=== PATIENT | female | born 1985 ===

== ENCOUNTER 2023-04-08 22:25 | Emergency (ER) | payer OTHER, MEDICAID, SELFPAY ==
[2023-04-08 22:31] VITALS: BP 112/62; PULSE 79; RESP 16; TEMP 36.3; O2SAT 95; BMI 31.9
--- NOTE | 2023-04-08 22:40 | DI.RAD.S_ITS ---
PROCEDURE: XR ANKLE LT MIN 3V INDICATIONS: Fall TECHNIQUE: 3 views of the ankle were acquired. COMPARISON: None. FINDINGS: Bones: No fractures or dislocations. Ankle mortise is normally aligned. No suspicious bony lesions. Soft tissues: No tibiotalar joint effusion. Achilles tendon appears normal. IMPRESSION: No trauma found. Dictated by: Nigel Muller M.D. on 04/08/2023 at 23:13 Approved by: Nigel Muller M.D. on 04/08/2023 at 23:14
--- NOTE | 2023-04-09 01:43 | ED_ITS ---
HPI - Extremity Injury (Lower) General Chief Complaint: Extremity Injury, Lower Stated Complaint: L ankle fx Time Seen by Provider: 04/08/23 22:43 Source: EMS Mode of arrival: EMS History of Present Illness HPI Narrative: Left inversion ankle injury. Mechanical fall. No other acute abnormalities. Brought over by air ambulance from [facility]. He had been given IM Toradol and oral Tylenol prior to arrival moderate control of pain. Review of Systems Review of Systems Narrative: Remainder of complete review of systems is otherwise unremarkable except for that included in the HPI. Patient History Medical History (Updated 04/09/23 @ 01:54 by Khushi Francisco MD) Opioid use disorder, severe, in sustained remission Exam Initial Vital Signs Initial Vital Signs: Vital Signs Temperature 97.4 F L 04/08/23 22:31 Pulse Rate 79 04/08/23 22:31 Respiratory Rate 16 04/08/23 22:31 Blood Pressure 112/62 04/08/23 22:31 Pulse Oximetry 95 04/08/23 22:31 Oxygen Delivery Method Room Air 04/08/23 22:31 General: Alert appropriate in no acute distress Respiratory: Able to speak in full sentences, no obvious respiratory distress Skin: No obvious rashes, warm and dry Neurologic: Grossly intact no obvious asymmetries or abnormalities Psych: appropriate insight and affect, cooperative Extremity: Left ankle with significant edema without ecchymosis but moderate tenderness on the lateral aspect. Painful range of motion but nerve vascularly intact. No knee or hip involvement. Course Orders Ordered: ED Orders 04/08/23 22:40 XR ankle LT min 3V Stat Vital Signs Vital signs: Vital Signs - 8 hr 04/08/23 22:31 Temperature 97.4 F L Pulse Rate 79 Respiratory Rate 16 Blood Pressure 112/62 Pulse Oximetry 95 Oxygen Delivery Method Room Air MDM - Extremity Injury (Lower) MDM Narrative Medical decision making narrative: CC: Mechanical fall twisting her left ankle with a loud pop and immediate swelling to the lateral aspect. This is an acute problem uncertain prognosis. Complicating co-morbidities: Currently in recovery and on injectable buprenorphine Data collected from: patient, mother Social determinants of health that may influence the patients condition: Currently lives in [place] Differential considered: Fracture, sprain Exam documented above, pertinent findings include: Swelling along the lateral malleolus tender with movement in any plane for the ankle. No knee or hip pain Imaging studies independently reviewed: Ankle x-rays do not show any fractures Treatments: Toradol and ibuprofen, ankle splint and crutche Discussion: 37-year-old woman with acute ankle sprain no evidence of fracture. intermediate card tender enough that she is not able to weight bear. Air ankle splint is placed without complication. She is given crutches. We use ibuprofen and Tyl enol for pain control. Talked about elevation and ice. Questions are answered and she is safe for discharge home Discharge Plan Departure Patient Disposition: Home Clinical Impression: Ankle sprain and strain Instructions: DI for Ankle Sprain Activity Restrictions/Additional Instructions: Thank you for coming in today I am very glad that you did not actually break your ankle. You clearly have a significant sprain. Please use the ankle splint as needed for comfort and stability. Using 400 mg of ibuprofen (2 [id number] pills) and 1 Tylenol every 6 hours can be very helpful in controlling pain. Keeping the ankle elevated, using crutches as needed, ice for swelling will all be helpful. If you find that you are getting worse or develop any new symptoms, please feel free to return to the emergency department for further evaluation. Stand Alone Forms: Patient Portal/API
[2023-04-09 02:08] VITALS: BP 96/58; PULSE 78; RESP 16; O2SAT 97
== END 2023-04-09 02:10 | disposition home or self-care (01) ==
PROVIDERS: Emergency Provider Emergency Medicine
DX: S93.402A Sprain of unspecified ligament of left ankle, initial encounter (principal); S96.912A Strain of unspecified muscle and tendon at ankle and foot level, left foot, initial encounter; W19.XXXA Unspecified fall, initial encounter
CPT/HCPCS: 73610; 99282